=== PATIENT | male | born 1940 | race Caucasian/White ===

== ENCOUNTER 2018-11-20 19:45 | Emergency (ER) | payer SELFPAY ==
--- NOTE | 2018-11-20 22:02 | CT ---
EXAM: Brain CT scan Without contrast: HISTORY: Injury from a fall COMPARISON: None FINDINGS: Atrophy and chronic white matter ischemic change. No focal mass or midline shift. No intra or extra-axial hemorrhage. The visualized sinuses and mastoids are clear of acute process. IMPRESSION: No mass or bleed or other significant acute intracranial process.
--- NOTE | 2018-11-20 22:07 | CT ---
EXAM: CT scan cervical spineWithout contrast: HISTORY: Injury from a fall COMPARISON: None FINDINGS: No evidence for acute fracture or facet dislocation. No significant malalignment. No prevertebral soft tissue swelling. Severe spondylosis with extensive disc osteophytosis including some chronic erosive changes of the C1 -C2 odontoid region with intraosseous cystic change all of which appears to be related to degenerative change and osteoarthrosis. IMPRESSION: No evidence for acute fracture or facet dislocation or other significant acute process. Extensive multilevel spondylosis with degenerative change and osteoarthrosis changes.
--- NOTE | 2018-11-20 22:23 | CT ---
THORACIC SPINE CT WITHOUT CONTRAST: 11/20/18 HISTORY: Fall. Pain. COMPARISON: None. FINDINGS: Twelve thoracic type vertebral bodies. Multilevel degenerative disc disease with loss of disc space h eight and osteophyte formation. No malalignment. Thoracic spine vertebral body height is maintained. There is no paraspinal mass, lymphadenopathy or hematoma. There is mild multilevel stenosis of the ce ntral spinal canal. Throughout the thoracic spine, neural foramina are patent. IMPRESSION: No fracture. POS: PPP
[2018-11-21] MEDS ORDERED: Adacel (T-DAP) 0.5 ML SYRINGE ONE (00:08)
== END 2018-11-21 00:19 | disposition home or self-care (01) ==
LOC: ERS 19:45
DX: S01.81XA Laceration without foreign body of other part of head, initial encounter (principal); M54.2 Cervicalgia; F03.90 Unspecified dementia, unspecified severity, without behavioral disturbance, psychotic disturbance, mood disturbance, and anxiety; Z79.899 Other long term (current) drug therapy; W18.2XXA Fall in (into) shower or empty bathtub, initial encounter
CPT/HCPCS: 12011; 70450; 72125; 72128; 90471; 90715

== ENCOUNTER 2019-12-26 09:49 | Emergency (ER) | payer MEDICARE, SELFPAY ==
--- NOTE | 2019-12-26 11:01 | CT ---
CT head without contrast: Multiple axial tomograms obtained through the head without IV enhancement. INDICATIONS: Altered mental status COMPARISON: None FINDINGS: Ventricles have normal size and position. No evidence of intracranial mass, hemorrhage, edema, or infarct. Mild cortical atrophy. Visualized sinuses and mastoids appear clear. Bony calvarium appears unremarkable. IMPRESSION: No acute finding
[2019-12-26 11:07] LABS: Hemoglobin 15.6 g/dL (14.0-18.0); Mean Corpuscular HGB CONC 32.5 g/dL (32.0-36.0); Mean Corpuscular Hemoglobin 30.4 pg (27.0-31.0); Mean Corpuscular Volume 93.5 fL (78.0-98.0); Mean Platelet Volume 7.9 fL (7.4-10.4); Platelet Count 417 thou/uL (130-400); RBC Distribution Width 12.9 % (11.5-14.5); Red Blood Cell (RBC) Count 5.14 mill/uL (4.70-6.10)
[2019-12-26 11:12] LABS: Band 1 % (5-11); Lymphocytes 21 % (21-51); MDiff Complete? YES; Monocytes 4 % (0-10); Neutrophil 74 % (42-75); Platelet Morphology Comment Appears Increased; Polychromasia SLIGHT = 2-3 cells (100X) (0-2/hpf)
--- NOTE | 2019-12-26 11:19 | RAD ---
EXAM: Single view of the chest HISTORY: Altered mental status COMPARISON: None FINDINGS: Single view of the chest shows a normal sized cardiomediastinal silhouette. The patient is status post sternotomy. There is no evidence of consolidation, mass, or pleural effusion. Degenerative changes are seen in the spine. IMPRESSION: No evidence of acute cardiopulmonary disease
[2019-12-26 12:00] LABS: Bilirubin Negative (Negative); Blood, Urine Negative (Negative); Clarity Clear (Clear); Glucose, Urine (Dipstick) 30 mg/dL (Negative); Ketone, Urine Negative (Negative); Leukocyte Negative Leu/uL (Negative); Nitrite Negative (Negative); Protein, Urine (Dipstick) Negative (Neg-Trace); Specific Gravity, Urine 1.023 (1.002-1.036); Urobilinogen Normal mg/dL (Less than 2); pH, Urine 5.5 (5.0-9.0)
[2019-12-26 12:28] LABS: Albumin 3.7 g/dL (3.4-4.8)
[2019-12-26 12:29] LABS: Chloride 106 mmol/L (98-107); Potassium 4.1 mmol/L (3.5-5.1); Sodium 136 mmol/L (136-145)
[2019-12-26 12:30] LABS: Calcium 8.6 mg/dL (7.8-10.44); Glucose 97 mg/dL (83-110)
[2019-12-26 12:31] LABS: Globulin 2.5 g/dL (2.4-3.5); Protein, Total 6.2 g/dL (5.8-8.1)
[2019-12-26 12:32] LABS: Anion Gap 9 mmol/L (10-20); Bilirubin, Total 0.4 mg/dL (0.2-1.2); Carbon Dioxide 25 mmol/L (23-31)
[2019-12-26 12:33] LABS: Alkaline Phosphatase 61 U/L (40-110)
[2019-12-26 12:34] LABS: Calc. Creatinine Clearance 0 mL/min (70-130); Estimated GFR-MDRD 69
[2019-12-26 12:35] LABS: BUN (Urea Nitrogen) 14 mg/dL (8.4-25.7)
[2019-12-26 12:36] LABS: ALT (SGPT) 20 U/L (8-55); AST (SGOT) 17 U/L (5-34)
== END 2019-12-26 15:02 | disposition home or self-care (01) ==
LOC: ERS 09:49
DX: E86.0 Dehydration (principal)
CPT/HCPCS: 36415; 70450; 71045; 80053; 81003; 83605; 84484; 85025; 93005; 94760; 96360

== ENCOUNTER 2020-07-19 13:17 | Emergency (ER) | payer MEDICARE ==
--- NOTE | 2020-07-19 13:51 | CT ---
EXAM: CT brain without contrast HISTORY: Altered mental status COMPARISON: 12/26/2019 TECHNIQUE: Multiple contiguous axial images were obtained and a CT of the brain without contrast. FINDINGS: The brain is normal in morphology and attenuation without focal lesions or confluent areas of infarction. There is no evidence of hydrocephalus, intracranial hemorrhage, or extra-axial fluid collection. The calvarium and overlying soft tissues are unremarkable. The visualized paranasal sinuses and masto id air cells are well aerated. IMPRESSION: No evidence of acute intracranial abnormality
[2020-07-19 13:55] LABS: #Eosinphils 0.2 thou/uL (0.0-0.7); #Lymphocytes 1.7 thou/uL (1.20-3.40); #Monocytes 0.6 thou/uL (0.11-0.59); #Neutrophils 4.2 thou/uL (1.40-6.50); %Basophils 0.3 % (0.0-1.0); %Eosinophils 2.4 % (0.0-10.0); %Lymphocytes 25.9 % (21.0-51.0); %Monocytes 9.2 % (0.0-10.0); %Neutrophils 62.2 % (42.0-75.0); Hemoglobin 14.2 g/dL (14.0-18.0); Mean Corpuscular HGB CONC 33.5 g/dL (32.0-36.0); Mean Corpuscular Hemoglobin 31.6 pg (27.0-31.0); Mean Corpuscular Volume 94.2 fL (78.0-98.0); Mean Platelet Volume 6.6 fL (7.4-10.4); Platelet Count 390 thou/uL (130-400); RBC Distribution Width 11.9 % (11.5-14.5); White Blood Cell (WBC) Count 6.7 thou/uL (4.8-10.8)
[2020-07-19 14:15] LABS: ALT (SGPT) 20 U/L (8-55); AST (SGOT) 17 U/L (5-34); Albumin 4.1 g/dL (3.4-4.8); Alkaline Phosphatase 69 U/L (40-110); Anion Gap 14 mmol/L (10-20); BUN (Urea Nitrogen) 16 mg/dL (8.4-25.7); Bilirubin, Total 0.5 mg/dL (0.2-1.2); Calc. Creatinine Clearance 0 mL/min (70-130); Calcium 9.1 mg/dL (7.8-10.44); Carbon Dioxide 25 mmol/L (23-31); Chloride 105 mmol/L (98-107); Globulin 2.7 g/dL (2.4-3.5); Glucose 120 mg/dL (83-110); Potassium 3.7 mmol/L (3.5-5.1); Protein, Total 6.8 g/dL (5.8-8.1); Sodium 140 mmol/L (136-145)
== END 2020-07-19 16:40 ==
LOC: ERS 13:17
DX: R41.82 Altered mental status, unspecified (principal)
CPT/HCPCS: 36415; 70450; 80053; 85025

== ENCOUNTER 2021-01-11 16:30 | Inpatient (IN) | payer MEDICARE, OTHER ==
[2021-01-11] MEDS ORDERED: Cefepime 2 GM VIAL ONE ×2 (17:06→17:08)
[2021-01-11 17:20] LABS: Hemoglobin 13.3 g/dL (14.0-18.0); Mean Corpuscular HGB CONC 34.4 g/dL (32.0-36.0); Mean Corpuscular Hemoglobin 32.3 pg (27.0-31.0); Mean Corpuscular Volume 94.1 fL (78.0-98.0); Mean Platelet Volume 6.1 fL (7.4-10.4); Platelet Count 353 thou/uL (130-400); RBC Distribution Width 12.8 % (11.5-14.5); Red Blood Cell (RBC) Count 4.12 mill/uL (4.70-6.10); White Blood Cell (WBC) Count 7.2 thou/uL (4.8-10.8)
[2021-01-11 17:40] LABS: Band 6 % (5-11); Eosinophils 3 % (0-10); Lymphocytes 15 % (21-51); MDiff Complete? YES; Monocytes 16 % (0-10); Neutrophil 55 % (42-75); Platelet Morphology Comment Appears Adequate; RBC Morphology Normal; Reactive Lymphocytes 5 % (0-10)
[2021-01-11 17:48] LABS: ALT (SGPT) 20 U/L (8-55); AST (SGOT) 20 U/L (5-34); Albumin 3.8 g/dL (3.4-4.8); Alkaline Phosphatase 52 U/L (40-110); Anion Gap 12 mmol/L (10-20); BUN (Urea Nitrogen) 17 mg/dL (8.4-25.7); Bilirubin, Total 0.4 mg/dL (0.2-1.2); Calc. Creatinine Clearance 0 mL/min (70-130); Calcium 9.1 mg/dL (7.8-10.44); Carbon Dioxide 26 mmol/L (23-31); Chloride 94 mmol/L (98-107); Globulin 2.6 g/dL (2.4-3.5); Glucose 86 mg/dL (83-110); Lipase 14 U/L (8-78); Potassium 4.2 mmol/L (3.5-5.1); Protein, Total 6.4 g/dL (5.8-8.1); Sodium 128 mmol/L (136-145)
[2021-01-11] MEDS ORDERED: Vancomycin 1 GM/200 ML BAG ONE (17:51)
[2021-01-11 18:15] LABS: SARS-CoV-2 NAA Rapid Test Not Detected (NotDetected)
[2021-01-11] MEDS ORDERED: Lorazepam 2 MG/ML VIAL ONE ×2 (18:20→21:15)
[2021-01-11] MEDS ORDERED: Haloperidol Lactate 5 MG/ML VIAL ONE (18:21)
[2021-01-11 19:09] LABS: Bilirubin Negative (Negative); Blood, Urine Negative (Negative); Clarity Clear (Clear); Glucose, Urine (Dipstick) Normal (Negative); Ketone, Urine 10 mg/dL (Negative); Leukocyte Negative Leu/uL (Negative); Nitrite Negative (Negative); Protein, Urine (Dipstick) Negative (Neg-Trace); Specific Gravity, Urine 1.017 (1.002-1.036); Urobilinogen Normal mg/dL (Less than 2); pH, Urine 6.5 (5.0-9.0)
[2021-01-12] MEDS: Lorazepam 2 MG/ML VIAL SLOW IVP PRN ×3 (00:29→09:16)
[2021-01-12 05:18] LABS: Band 1 % (5-11); Eosinophils 1 % (0-10); Hemoglobin 13.3 g/dL (14.0-18.0); Lymphocytes 8 % (21-51); MDiff Complete? YES; Mean Corpuscular HGB CONC 33.7 g/dL (32.0-36.0); Monocytes 19 % (0-10); Neutrophil 71 % (42-75); Platelet Count 330 thou/uL (130-400); Platelet Morphology Comment Appears Adequate; RBC Distribution Width 12.7 % (11.5-14.5); Red Blood Cell (RBC) Count 4.15 mill/uL (4.70-6.10)
[2021-01-12] MEDS ORDERED: Ondansetron ODT 4 MG TAB PO PRN (05:32)
[2021-01-12] MEDS ORDERED: Acetaminophen 650 MG Suppository PR PRN (05:32)
[2021-01-12] MEDS ORDERED: Ondansetron PF 4 MG/2 ML Vial IVP PRN (05:32)
[2021-01-12 05:57] LABS: Anion Gap 13 mmol/L (10-20); BUN (Urea Nitrogen) 13 mg/dL (8.4-25.7); Calc. Creatinine Clearance 91 mL/min (70-130); Calcium 8.7 mg/dL (7.8-10.44); Carbon Dioxide 24 mmol/L (23-31); Chloride 96 mmol/L (98-107); Glucose 66 mg/dL (83-110); Sodium 129 mmol/L (136-145)
[2021-01-12] MEDS: Dextrose 5 % And 0.9 % NaCl 1,000 ML IV SCH ×2 (12:17→23:17)
[2021-01-12 14:08] VITALS: BMI 26.1
[2021-01-12] MEDS ORDERED: cefTRIAXone\\ROCEPHIN 1 GM in Sodium Chloride 0.9% 100 ML IVPB SCH (15:00)
[2021-01-12] MEDS: Haloperidol Lactate 5 MG/ML VIAL SLOW IVP PRN ×2 (15:09→20:03)
[2021-01-12 18:21] LABS: Anion Gap 17 mmol/L (10-20); BUN (Urea Nitrogen) 11 mg/dL (8.4-25.7); Calc. Creatinine Clearance 93 mL/min (70-130); Calcium 8.3 mg/dL (7.8-10.44); Carbon Dioxide 16 mmol/L (23-31); Chloride 98 mmol/L (98-107); Glucose 79 mg/dL (83-110); Potassium 4.6 mmol/L (3.5-5.1); Sodium 126 mmol/L (136-145)
[2021-01-13] MEDS: Haloperidol Lactate 5 MG/ML VIAL SLOW IVP PRN ×3 (01:38→09:48)
[2021-01-13 06:34] LABS: Anion Gap 12 mmol/L (10-20); BUN (Urea Nitrogen) 10 mg/dL (8.4-25.7); Calc. Creatinine Clearance 94 mL/min (70-130); Calcium 8.6 mg/dL (7.8-10.44); Carbon Dioxide 23 mmol/L (23-31); Chloride 95 mmol/L (98-107); Glucose 113 mg/dL (83-110); Potassium 3.8 mmol/L (3.5-5.1); Sodium 126 mmol/L (136-145)
[2021-01-13] MEDS ORDERED: Haloperidol Lactate 5 MG/ML VIAL SLOW IVP SCH (11:00)
[2021-01-13] MEDS: Dextrose 5 % And 0.9 % NaCl 1,000 ML IV SCH (12:33)
[2021-01-13] MEDS ORDERED: Haloperidol Lactate 5 MG/ML VIAL SLOW IVP PRN (14:23)
[2021-01-13] MEDS ORDERED: Haloperidol Lactate 5 MG/ML VIAL IM PRN (16:59)
[2021-01-13 18:33] LABS: Anion Gap 9 mmol/L (10-20); BUN (Urea Nitrogen) 9 mg/dL (8.4-25.7); Calc. Creatinine Clearance 98 mL/min (70-130); Calcium 8.9 mg/dL (7.8-10.44); Carbon Dioxide 27 mmol/L (23-31); Chloride 96 mmol/L (98-107); Glucose 118 mg/dL (83-110); Potassium 3.9 mmol/L (3.5-5.1); Sodium 128 mmol/L (136-145)
[2021-01-13] MEDS: Donepezil HCl 10 MG TAB PO SCH (21:55)
[2021-01-13] MEDS: risperiDONE 1 MG TAB PO SCH (21:56)
[2021-01-13] MEDS: Sterile Water 10 ML VIAL FS PRN (22:04)
[2021-01-13] MEDS: Ziprasidone 20 MG VIAL IM PRN (22:04)
[2021-01-13] MEDS ORDERED: Valproate Sodium 250 mg/5 ml UD Cup PO SCH (22:30)
[2021-01-14] MEDS: Sterile Water 10 ML VIAL FS PRN ×2 (04:07→20:26)
[2021-01-14] MEDS: Ziprasidone 20 MG VIAL IM PRN ×4 (04:07→20:26)
[2021-01-14] MEDS: Dextrose 5 % And 0.9 % NaCl 1,000 ML IV SCH (04:09)
[2021-01-14] MEDS: Levothyroxine Sodium 50 MCG TAB PO SCH (04:09)
[2021-01-14 06:54] LABS: Anion Gap 14 mmol/L (10-20); BUN (Urea Nitrogen) 7 mg/dL (8.4-25.7); Calc. Creatinine Clearance 106 mL/min (70-130); Calcium 8.8 mg/dL (7.8-10.44); Carbon Dioxide 23 mmol/L (23-31); Chloride 95 mmol/L (98-107); Glucose 125 mg/dL (83-110); Potassium 3.8 mmol/L (3.5-5.1); Sodium 128 mmol/L (136-145)
[2021-01-14] MEDS: risperiDONE 1 MG TAB PO SCH (09:21)
[2021-01-14] MEDS: Sodium Chloride 1 GM TAB PO SCH ×2 (15:33→22:06)
[2021-01-14] MEDS: Valproate Sodium 250 mg/5 ml UD Cup PO SCH (22:07)
[2021-01-14] MEDS: Donepezil HCl 10 MG TAB PO SCH (22:07)
[2021-01-15] MEDS: Levothyroxine Sodium 50 MCG TAB PO SCH (04:40)
[2021-01-15] MEDS: Ziprasidone 20 MG VIAL IM PRN ×3 (05:40→21:51)
[2021-01-15 06:50] LABS: Albumin 3.6 g/dL (3.4-4.8); Phosphorus 2.8 mg/dL (2.3-4.7)
[2021-01-15 06:52] LABS: Anion Gap 12 mmol/L (10-20); BUN (Urea Nitrogen) 6 mg/dL (8.4-25.7); Calc. Creatinine Clearance 103 mL/min (70-130); Calcium 9.2 mg/dL (7.8-10.44); Carbon Dioxide 26 mmol/L (23-31); Chloride 98 mmol/L (98-107); Glucose 90 mg/dL (83-110); Magnesium 1.8 mg/dL (1.6-2.6); Potassium 3.5 mmol/L (3.5-5.1); Sodium 132 mmol/L (136-145)
[2021-01-15] MEDS: Sodium Chloride 1 GM TAB PO SCH ×3 (09:28→21:27)
[2021-01-15] MEDS: Valproate Sodium 250 mg/5 ml UD Cup PO SCH ×3 (09:29→21:26)
[2021-01-15] MEDS: Sterile Water 10 ML VIAL FS PRN ×2 (10:12→21:51)
[2021-01-15] MEDS: Donepezil HCl 10 MG TAB PO SCH (21:27)
[2021-01-15] MEDS: Acetaminophen 325 MG TAB PO PRN (21:27)
[2021-01-16] MEDS: Levothyroxine Sodium 50 MCG TAB PO SCH ×2 (05:36→08:35)
[2021-01-16 07:25] LABS: Albumin 3.6 g/dL (3.4-4.8); Anion Gap 12 mmol/L (10-20); BUN (Urea Nitrogen) 11 mg/dL (8.4-25.7); BUN/Creatinine Ratio 13.58; Calc. Creatinine Clearance 93 mL/min (70-130); Calcium 9.5 mg/dL (7.8-10.44); Carbon Dioxide 29 mmol/L (23-31); Chloride 98 mmol/L (98-107); Glucose 85 mg/dL (83-110); Phosphorus 3.4 mg/dL (2.3-4.7); Potassium 3.9 mmol/L (3.5-5.1); Sodium 135 mmol/L (136-145)
[2021-01-16] MEDS: Sodium Chloride 1 GM TAB PO SCH ×3 (08:40→19:49)
[2021-01-16] MEDS: Valproate Sodium 250 mg/5 ml UD Cup PO SCH ×3 (08:41→19:49)
[2021-01-16] MEDS: Ziprasidone 20 MG VIAL IM PRN (16:42)
[2021-01-16] MEDS: Sterile Water 10 ML VIAL FS PRN (16:42)
[2021-01-16] MEDS: Donepezil HCl 10 MG TAB PO SCH (19:50)
[2021-01-16] MEDS: Acetaminophen 325 MG TAB PO PRN (19:51)
[2021-01-17] MEDS: Levothyroxine Sodium 50 MCG TAB PO SCH (05:12)
[2021-01-17 07:24] LABS: Hemoglobin 13.3 g/dL (14.0-18.0); Mean Corpuscular HGB CONC 33.7 g/dL (32.0-36.0); Mean Corpuscular Hemoglobin 31.6 pg (27.0-31.0); Mean Corpuscular Volume 93.9 fL (78.0-98.0); Mean Platelet Volume 5.8 fL (7.4-10.4); Platelet Count 426 thou/uL (130-400); RBC Distribution Width 12.8 % (11.5-14.5); White Blood Cell (WBC) Count 6.8 thou/uL (4.8-10.8)
[2021-01-17 07:28] LABS: ALT (SGPT) 22 U/L (8-55); AST (SGOT) 19 U/L (5-34); Albumin 3.4 g/dL (3.4-4.8); Alkaline Phosphatase 50 U/L (40-110); Anion Gap 11 mmol/L (10-20); BUN (Urea Nitrogen) 12 mg/dL (8.4-25.7); Bilirubin, Total 0.5 mg/dL (0.2-1.2); Calc. Creatinine Clearance 88 mL/min (70-130); Carbon Dioxide 29 mmol/L (23-31); Chloride 97 mmol/L (98-107); Globulin 2.6 g/dL (2.4-3.5); Glucose 93 mg/dL (83-110); Magnesium 1.7 mg/dL (1.6-2.6); Potassium 3.7 mmol/L (3.5-5.1); Sodium 133 mmol/L (136-145)
[2021-01-17] MEDS: Valproate Sodium 250 mg/5 ml UD Cup PO SCH ×4 (08:47→19:29)
[2021-01-17] MEDS: Sodium Chloride 1 GM TAB PO SCH ×4 (08:47→19:27)
[2021-01-17] MEDS: Sterile Water 10 ML VIAL FS PRN (19:19)
[2021-01-17] MEDS: Ziprasidone 20 MG VIAL IM PRN (19:19)
[2021-01-17] MEDS: Donepezil HCl 10 MG TAB PO SCH (19:26)
[2021-01-17] MEDS: Acetaminophen 325 MG TAB PO PRN (19:26)
[2021-01-18] MEDS: Levothyroxine Sodium 50 MCG TAB PO SCH (05:35)
[2021-01-18] MEDS: Sterile Water 10 ML VIAL FS PRN ×2 (06:22→19:11)
[2021-01-18] MEDS: Ziprasidone 20 MG VIAL IM PRN ×2 (06:22→19:10)
[2021-01-18 07:20] LABS: Albumin 3.8 g/dL (3.4-4.8); Anion Gap 10 mmol/L (10-20); BUN (Urea Nitrogen) 12 mg/dL (8.4-25.7); Calc. Creatinine Clearance 81 mL/min (70-130); Calcium 9.7 mg/dL (7.8-10.44); Carbon Dioxide 30 mmol/L (23-31); Chloride 97 mmol/L (98-107); Glucose 115 mg/dL (83-110); Magnesium 1.8 mg/dL (1.6-2.6); Phosphorus 2.9 mg/dL (2.3-4.7); Potassium 3.7 mmol/L (3.5-5.1); Sodium 133 mmol/L (136-145)
[2021-01-18] MEDS: Sodium Chloride 1 GM TAB PO SCH ×3 (10:49→19:04)
[2021-01-18] MEDS: Valproate Sodium 250 mg/5 ml UD Cup PO SCH ×3 (10:49→19:05)
[2021-01-18] MEDS: Donepezil HCl 10 MG TAB PO SCH (19:05)
[2021-01-18] MEDS: Acetaminophen 325 MG TAB PO PRN (19:05)
[2021-01-19] MEDS: Ziprasidone 20 MG VIAL IM PRN ×4 (00:25→19:00)
[2021-01-19] MEDS: Sterile Water 10 ML VIAL FS PRN ×2 (00:25→19:00)
[2021-01-19] MEDS: Levothyroxine Sodium 50 MCG TAB PO SCH (06:29)
[2021-01-19] MEDS: Sodium Chloride 1 GM TAB PO SCH ×3 (09:29→20:09)
[2021-01-19 10:13] LABS: Anion Gap 13 mmol/L (10-20); BUN (Urea Nitrogen) 13 mg/dL (8.4-25.7); Calc. Creatinine Clearance 85 mL/min (70-130); Calcium 9.4 mg/dL (7.8-10.44); Carbon Dioxide 30 mmol/L (23-31); Chloride 99 mmol/L (98-107); Glucose 115 mg/dL (83-110); Potassium 3.6 mmol/L (3.5-5.1); Sodium 138 mmol/L (136-145)
[2021-01-19] MEDS: Valproate Sodium 250 mg/5 ml UD Cup PO SCH ×3 (13:14→20:09)
[2021-01-19] MEDS: Donepezil HCl 10 MG TAB PO SCH (20:07)
[2021-01-19] MEDS: Acetaminophen 325 MG TAB PO PRN (20:07)
[2021-01-19 20:35] LABS: SARS-CoV-2 PCR by NAA Not Detected (NotDetected)
[2021-01-20] MEDS: Sterile Water 10 ML VIAL FS PRN (00:34)
[2021-01-20] MEDS: Ziprasidone 20 MG VIAL IM PRN ×2 (00:34→09:42)
[2021-01-20] MEDS: Levothyroxine Sodium 50 MCG TAB PO SCH (06:00)
[2021-01-20 07:44] LABS: Anion Gap 8 mmol/L (10-20); BUN (Urea Nitrogen) 12 mg/dL (8.4-25.7); Calc. Creatinine Clearance 93 mL/min (70-130); Calcium 9.1 mg/dL (7.8-10.44); Carbon Dioxide 33 mmol/L (23-31); Chloride 102 mmol/L (98-107); Glucose 85 mg/dL (83-110); Potassium 3.9 mmol/L (3.5-5.1); Sodium 139 mmol/L (136-145)
[2021-01-20 07:48] VITALS: BP 155/85; TEMP 97.8
[2021-01-20] MEDS: Sodium Chloride 1 GM TAB PO SCH (09:42)
[2021-01-20] MEDS: Valproate Sodium 250 mg/5 ml UD Cup PO SCH (09:42)
== END 2021-01-20 12:24 | disposition home or self-care (01) | DRG 56 ==
LOC: ERS 16:30 → T4-B 20:17 → OBSVTOIN 01-12 18:50
PROVIDERS: ADMIT Student in an Organized Health Care Education/Training Program; ATTEND Internal Medicine
DX: G30.9 Alzheimer's disease, unspecified (principal); G93.41 Metabolic encephalopathy; E22.2 Syndrome of inappropriate secretion of antidiuretic hormone; F02.81 Dementia in other diseases classified elsewhere, unspecified severity, with behavioral disturbance; I25.10 Atherosclerotic heart disease of native coronary artery without angina pectoris; E03.9 Hypothyroidism, unspecified; Z20.822 Contact with and (suspected) exposure to COVID-19; Z95.1 Presence of aortocoronary bypass graft; Z79.82 Long term (current) use of aspirin
CPT/HCPCS: 0240U; 36415; 70450; 71045; 80048; 80053; 80069; 81003; 82040; 82140; 83605; 83690; 83735; 83930; 83935; 84100; 84300; 84443; 84484; 84550; 85025; 85027; 87040; 93005; 93010; 96365; 96367; 96375; 96376; G0378; J0692; J0696; J1630; J2060; J3370; J3486; J3490; J7042; U0003; U0005